=== PATIENT | female | born 1980 | race Caucasian/White ===

== ENCOUNTER → 2023-07-22 11:23 | Outpatient (REF) | payer OTHER, SELFPAY | LOC: PNTC 11:23 | PROVIDERS: ATTENDING PHYSICIAN Obstetrics & Gynecology | DX: Z36.0 Encounter for antenatal screening for chromosomal anomalies (principal); Z36.82 Encounter for antenatal screening for nuchal translucency | CPT/HCPCS: 76801; 76813 ==

== ENCOUNTER → 2023-11-02 11:18 | Outpatient (REF) | payer OTHER, SELFPAY | LOC: REG 11:18 | PROVIDERS: ATTENDING PHYSICIAN Obstetrics & Gynecology; FAMILY PHYSICIAN Physician Assistant Medical | DX: O09.523 Supervision of elderly multigravida, third trimester (principal) | CPT/HCPCS: 36415; 86850; 86900; 86901; J2790 ==

== ENCOUNTER 2024-01-25 04:14 | Inpatient (IN) | payer OTHER, SELFPAY ==
[2024-01-25 04:32] VITALS: BP 140/80; BMI 31.0
[2024-01-25] MEDS: LR 1000 IV (04:34)
[2024-01-25 04:50] LABS: Hematocrit 33.8 % (37.0-47.0); Hemoglobin 11.8 g/dL (12.0-16.0); Mean Corp Hgb Conc. 34.9 g/dL (33.0-37.0); Mean Corpuscular Hgb 28.2 pg (27.0-31.0); Mean Corpuscular Volume 80.7 fL (81.0-99.0); Mean Platelet Volume 9.4 fL (7.4-10.4); Platelet Count 237 10^3/uL (130-400); Red Blood Cell Count 4.19 10^6/uL (4.20-5.40); Red Cell Dist. Width 13.2 % (11.5-14.5); White Blood Cell Count 8.3 10^3/uL (4.8-10.8)
[2024-01-25] MEDS: BICITRA 30 ML PO (05:05)
[2024-01-25] MEDS: ANCEF 10 IV (05:06)
[2024-01-25] MEDS: TYLENOL 1000 MG PO (05:06)
[2024-01-25] MEDS: TRANEXAMIC ACID 100 IV (07:48)
[2024-01-25] MEDS: PERCOCET 5/325 1 TABLET PO (10:26)
[2024-01-25] MEDS: TORADOL 15 MG IV ×2 (12:36→18:22)
[2024-01-25] MEDS: PRENATAL PLUS 1 TABLET PO (17:40)
[2024-01-25] MEDS: LAMICTAL 100 MG PO (22:04)
[2024-01-25] MEDS: TYLENOL 650 MG PO (22:09)
[2024-01-26] MEDS: TORADOL 15 MG IV ×2 (00:37→06:49)
[2024-01-26 05:00] LABS: Hematocrit 25.2 % (37.0-47.0); Hemoglobin 8.7 g/dL (12.0-16.0); Mean Corp Hgb Conc. 34.5 g/dL (33.0-37.0); Mean Corpuscular Hgb 28.2 pg (27.0-31.0); Mean Corpuscular Volume 81.8 fL (81.0-99.0); Mean Platelet Volume 9.4 fL (7.4-10.4); Platelet Count 193 10^3/uL (130-400); Red Blood Cell Count 3.08 10^6/uL (4.20-5.40); Red Cell Dist. Width 13.4 % (11.5-14.5); White Blood Cell Count 9.1 10^3/uL (4.8-10.8)
[2024-01-26] MEDS: PRENATAL PLUS 1 TABLET PO (08:55)
[2024-01-26] MEDS: SENOKOT-S 1 TABLET PO (08:55)
[2024-01-26] MEDS: TYLENOL 650 MG PO ×3 (08:55→21:11)
[2024-01-26] MEDS: MYLICON 80 MG PO ×2 (08:55→21:11)
--- NOTE | 2024-01-26 12:36 | W.PN.ANS.POP ---
Anesthesia Post Operative
- Anesthesia Post Op Note
Vital Signs Stable-See Nursing Note: Yes
Airway Patent: Yes
Adequate Pain Control: Yes
Change in Mental Status: No
Current Postoperative Nausea & Vomiting: No
Anesthesia Complications: No
General Anesthetic Recall: No
Unplanned Admission: No
Post Op Hydration Adequate: Yes
[2024-01-26] MEDS: MOTRIN 600 MG PO ×2 (14:29→21:11)
[2024-01-26] MEDS: RHOGAM 300 MCG IM (16:19)
[2024-01-26] MEDS: LAMICTAL 100 MG PO (22:15)
[2024-01-27] MEDS: TYLENOL 650 MG PO ×2 (05:08→12:45)
[2024-01-27] MEDS: MYLICON 80 MG PO (05:08)
[2024-01-27] MEDS: MOTRIN 600 MG PO ×2 (05:08→12:46)
[2024-01-27] MEDS: PRENATAL PLUS 1 TABLET PO (08:18)
[2024-01-27] MEDS: FEOSOL 325 MG PO (08:18)
--- NOTE | 2024-01-27 10:51 | W.DS.TRANS ---
DC Summary - [employer]
-
Discharge Instructions:
Discharge Diagnosis/Procedures delivered by repeat csection;
bilateral salpingectomy
Diet Regular
Activity No strenuous activity
Driving Restrictions No driving for 2 weeks
Bathing Restrictions OK to Shower
Instructions:
Stand-Alone Forms: LDRP Delivery
Changes to Home Medications: No
Discharge Medications:
DC Medications w/original date entered in [facility]
acetaminophen 325 mg tablet 650 mg (2 x 325 mg) PO Q4HPRN PRN mild pain #0 tabs 01/27/24
ferrous sulfate 325 mg (65 mg iron) tablet (FeroSul) 325 mg PO DAILY #0 tabs 01/27/24
ibuprofen 600 mg tablet 600 mg PO Q6HPRN PRN cramps #0 tabs 01/27/24
lamotrigine 100 mg tablet 100 mg PO HS #0 tabs 01/27/24
vitamin with calcium no.72-iron 27 mg-folic acid 1 mg tablet (WesTab Plus) 1 tab PO DAILY #0 tabs 01/27/24
Home Medication Changes
Pending Results: Yes
Additional Pending Results:
pathology
Total time spent discharging patient (in min): 20
[2024-01-28 11:54] LABS: Syphilis/T. pallidum Ab Reflex Negative (Negative)
== END 2024-01-27 13:27 | disposition home or self-care (01) | DRG 784 ==
LOC: LDRP 04:14
PROVIDERS: ADMITTING PHYSICIAN Obstetrics & Gynecology; FAMILY PHYSICIAN Family Medicine
PROC: 10D00Z1 Extraction of Products of Conception, Low, Open Approach (ICD-10-PCS; 2024-01-25)
PROC: 0UB70ZZ Excision of Bilateral Fallopian Tubes, Open Approach (ICD-10-PCS; 2024-01-25)
PROC: 3E0234Z Introduction of Serum, Toxoid and Vaccine into Muscle, Percutaneous Approach (ICD-10-PCS; 2024-01-26)
DX: O34.219 Maternal care for unspecified type scar from previous cesarean delivery (principal); O99.354 Diseases of the nervous system complicating childbirth; Z30.2 Encounter for sterilization; Z37.0 Single live birth; O99.824 Streptococcus B carrier state complicating childbirth; O77.0 Labor and delivery complicated by meconium in amniotic fluid; O69.2XX0 Labor and delivery complicated by other cord entanglement, with compression, not applicable or unspecified; O26.893 Other specified pregnancy related conditions, third trimester; G40.409 Other generalized epilepsy and epileptic syndromes, not intractable, without status epilepticus; O99.52 Diseases of the respiratory system complicating childbirth; J45.909 Unspecified asthma, uncomplicated; Z79.899 Other long term (current) drug therapy; Z3A.39 39 weeks gestation of pregnancy; Z64.1 Problems related to multiparity; Z88.1 Allergy status to other antibiotic agents; Z67.41 Type O blood, Rh negative; O90.81 Anemia of the puerperium
CPT/HCPCS: 88302; 58605; 85027; 85461; 86780; 86850; 86870; 86900; 86901; J2790

== ENCOUNTER → 2024-07-13 12:33 | Outpatient (REF) | payer BC, SELFPAY | LOC: HWRAD 12:33 | PROVIDERS: ATTENDING PHYSICIAN Student in an Organized Health Care Education/Training Program | DX: R10.11 Right upper quadrant pain (principal); Z90.49 Acquired absence of other specified parts of digestive tract | CPT/HCPCS: 76700 ==